=== PATIENT | male | born 1985 | race Caucasian/White ===

== ENCOUNTER 2022-04-25 20:47 | Emergency (ER) | payer MEDICAID ==
[~2022-04-25] VITALS: Ht 172.7 cm; Wt 63.5 kg
--- NOTE | 2022-04-25 21:05 | NUR ---
PT TO BED 07 FOR TRIAGE
[2022-04-25 21:08] VITALS: BP 151/97
--- NOTE | 2022-04-25 21:46 | NUR ---
Patient A/Ox4, lying in bed resting comfortably, chest rise and fall symmetrical, no s/s of distress, siezure pads in place.
[2022-04-25] MEDS ORDERED: LORazepam 1 MG TAB PO ONE (21:55)
--- NOTE | 2022-04-25 22:07 | NUR ---
X-Ray at bedside.
--- NOTE | 2022-04-25 22:30 | NUR ---
Patient A/Ox4, lying in bed resting comfortably, chest rise and fall symmetrical, no s/s of distress, siezure pads in place.
[2022-04-25] MEDS ORDERED: FAMO-92 PO (22:53)
[2022-04-25] MEDS ORDERED: ALUMINUM HYD/MAG/SIMETHICONE 30 ML UDC PO ONE (22:55)
--- NOTE | 2022-04-25 23:15 | NUR ---
Patient A/Ox4, lying in bed resting comfortably, chest rise and fall symmetrical, no s/s of distress, siezure pads in place.
[2022-04-25 23:19] VITALS: BP 121/87
== END 2022-04-25 23:19 | disposition home or self-care (01) ==
LOC: MED 20:47
DX: K20.90 Esophagitis, unspecified without bleeding (principal); F10.10 Alcohol abuse, uncomplicated; Z79.899 Other long term (current) drug therapy; Y90.9 Presence of alcohol in blood, level not specified
CPT/HCPCS: 71045; 93005; 99283

== ENCOUNTER 2022-06-06 15:10 | Emergency (ER) | payer SELFPAY ==
[~2022-06-06] VITALS: Ht 172.7 cm; Wt 72.6 kg
[~2022-06-06 15:10] MED LIST: FAMO-92 PO
[2022-06-06 15:19] VITALS: BP 148/84
--- NOTE | 2022-06-06 15:19 | NUR ---
PT AMBULATED TO LOBBY
--- NOTE | 2022-06-06 15:30 | NUR ---
37/M WALKED IN C/O B/L LEG PAIN AND SWELLING. DENIES FALL OR INJURY. PT REPORTS WALKING FREQUENTLY FOR A LONG DURATION. PT STATES PAIN WORSE WHEN WALKING. DENIES SOB OR CP. AAO4, AMBULATORY, VITALS STABLE, ON ROOM AIR. PMH: DENIES
[2022-06-06] MEDS ORDERED: IBUP-2213 PO (16:08)
== END 2022-06-06 16:15 | disposition home or self-care (01) ==
LOC: MED 15:10
DX: S76.812A Strain of other specified muscles, fascia and tendons at thigh level, left thigh, initial encounter (principal); S76.811A Strain of other specified muscles, fascia and tendons at thigh level, right thigh, initial encounter; X58.XXXA Exposure to other specified factors, initial encounter; Y93.89 Activity, other specified; Y92.89 Other specified places as the place of occurrence of the external cause; Y99.8 Other external cause status
CPT/HCPCS: 99282